=== PATIENT | female | born 1980 | race Hispanic/Latino ===

== ENCOUNTER 2017-09-28 12:51 | Emergency (ER) | payer BC ==
[2017-09-28] MEDS ORDERED: ONDANSETRON ODT 4 MG TAB ONE (13:11)
[2017-09-28] MEDS ORDERED: KETOROLAC TROMETHAMINE 30MG/ML ONE (13:11)
== END 2017-09-28 14:44 | disposition home or self-care (01) ==
LOC: EDH 12:51
DX: K52.9 Noninfective gastroenteritis and colitis, unspecified (principal)
CPT/HCPCS: 87804 ×2; 96372; 99284; J1885

== ENCOUNTER 2018-06-14 19:39 | Emergency (ER) | payer BC ==
[2018-06-14] MEDS ORDERED: DEXAMETHASONE SOD PHOSPHATE 10MG/ML 1ML VIAL ONE (20:06)
[2018-06-14] MEDS ORDERED: KETOROLAC TROMETHAMINE 30MG/ML ONE (20:06)
== END 2018-06-14 20:41 | disposition home or self-care (01) ==
LOC: EDH 19:39
DX: S33.5XXA Sprain of ligaments of lumbar spine, initial encounter (principal); F32.9 Major depressive disorder, single episode, unspecified; I10 Essential (primary) hypertension; Z98.890 Other specified postprocedural states; X58.XXXA Exposure to other specified factors, initial encounter; Y93.89 Activity, other specified; Y92.89 Other specified places as the place of occurrence of the external cause; Y99.8 Other external cause status
CPT/HCPCS: 96372 ×2; 99284; J1100; J1885